=== PATIENT | male | born 1960 | race Caucasian/White ===

== ENCOUNTER 2023-08-04 09:50 | Inpatient (IN) | payer OTHER, SELFPAY ==
[2023-08-04] VITALS (44 sets, daily range): BP systolic 70–142; BP diastolic 51–84; BMI 36.6; BMI 35.9
--- NOTE | 2023-08-04 07:29 | ED.GENMED ---
History of Present Illness
General
Chief Complaint: Fainting/Passed Out
Source: patient and ambulance crew
Exam Limitations: none
Time Seen by Provider: 08/04/23 07:20
Travel History
Have you had any contact with someone who has COVID-19?: No
Do you have any symptoms of coronavirus? Fever > 100 degrees, chills, cough, shortness of breath, sore throat, loss of taste or smell, muscle aches, or headache?: No
History of Present Illness
History of Present Illness:
62-year-old male recurring episodes of near syncope over the last 4 to 5 days. Usually with standing. Also intermittent episodes of indigestion. No indigestion today. However became very lightheaded and syncopal upon standing from bed today.
Has been on progressive increased doses of Mounjaro over the last 5 weeks.
Past History
Past History
ED Past Medical History: Arrthythmia, Cancer, HTN, Hypercholesterolemia and NIDDM
Social History
Tobacco: Smoker
Personal:
Living: with family
Review of Systems
Review of Systems
All Other Systems: Not applicable
Constitutional: Denies fever
Respiratory: Reports no symptoms
Phy Exam
Physical Exam
Physical Exam:
GENERAL: Alert and oriented in no apparent distress. Hypotensive lying flat although apparently improved from prehospital.
EYE: Orbits normal.
NECK: Supple, no significant adenopathy.
ENT: Pharynx without erythema
CARDIAC: Regular rate and rhythm without any obvious murmurs.
LUNGS: Clear breath sounds,normal
ABDOMEN: Soft, without focal tenderness or distention. Elevated BMI
NEUROLOGICAL: Alert and oriented , grossly non-focal
SKIN: Warm and dry, no rash or lesion, no discoloration, skin intact.
MUSCULOSKELETAL: No edema,no deformity.Good color
PSYCH: Normal and appropriate interaction..
Course
Orders/Labs/Results
Orders:
Orders
04/07/24 Breakfast
NPO
Allow oral meds: Yes
Allow clear liquids: Sips of Clears
08/04/23 07:20
Electrocardiogram (*1) Stat
Reason for Study: Abdominal Pain
Cardiac Monitoring- Treatment ONCE
EKG- Treatment ONCE
IV Insert/Care/Rem.- Treatment PRN
0.9% Sodium Chloride 1000 ml [Nss] 1,000 ml IV BOLUS
Pulse Ox/cont/shift [RESP] Stat
Quantity: 1
08/04/23 07:23
Complete Blood Count/With Diff Urgent
Comprehensive Metabolic Panel Urgent
Lactic Acid Urgent
Lipase Urgent
Magnesium Urgent
Comment: ADD ON
Troponin I Urgent
Blood Culture Q30M
MIRNA Source: Blood/Venous
Specimen Description:
08/04/23 08:00
Blood Culture Q30M
[facility]IRNA Source: Blood/Venous
Specimen Description:
08/04/23 08:34
Piperacillin/Tazo 4.5 Gram [Zosyn] 4.5 gram in 100 ml IV NOW
CXR Port [CR Chest Portable - 1 View] Urgent
Comment:
Reason For Exam: /Shaking chills/hypotension
Reason Study Needs to be Portable: Unable to Transport
08/04/23 08:36
COVID-19 Antigen Urgent
Source: Nasal Swab
Influenza A+B Rapid Molecular Urgent
MIRNA Source: Nasal Swab
Specimen Description:
08/04/23 08:50
0.9% Sodium Chloride 1000 ml [Nss] 1,000 ml IV BOLUS
08/04/23 08:51
Pearce Placement- Treatment ONCE
Reason for insertion: I&O's Critical Care
08/04/23 09:11
Urinalysis Reflex To Culture Urgent
Date Specimen was Collected: 08/04/23
Time Specimen was Collected: 08:58
Urine Microscopic Reflex Cult Urgent
08/04/23 09:37
Admit/Transfer Patient As Directed
Co-Sign Provider:
Level of Care: Inpatient admission
Assign to:: ICU
Physician / Group: Paola
Diagnosis: Shock, PRINCESS
Reason for Hospitalization: Shock
Expected length of stay greater than two midnights?: Yes
ELOS- Estimated Length of Stay in days: 4
I certify the patient meets the requirements for IP care: Yes
08/04/23 09:38
Code Status As Directed
Resuscitation Status: Full Code
08/04/23 09:44
Add On- LAB Routine
Tests Added?: magnesium
08/04/23 10:10
B-Hydroxybutyrate Routine
08/04/23 11:03
Acetaminophen [Tylenol] 650 mg PO Q6HPRN PRN
Dextrose 50%-Water [Dextrose 50% Syringe] 12.5 grams IV [id number] PRN
Glucagon [GlucaGen] 1 mg IM PRN PRN
NORepinephrine 4 MG/250 ML [Levophed] 4 mg in 250 ml IV PER PROTOCOL
Initial dose in mcg/min, then titrate:: 2
Titrate to keep:: SBP > 90 mmHg
Titrate by mcg/min:: 1-2 mcg/min
Frequency of titrations (minutes):: 5
Maximum dose in ICU in mcg/min:: 30
Maximum dose in IMU in mcg/min:: 8
Maximum dose in IVU in mcg/min:: 4
Begin to taper infusion when:: Remained at goal for 4hrs
Taper by mcg/min:: 1-2 mcg/min
Frequency of taper (minutes) if patient maintains goal:: 30
Taper to off?: Yes
If infusion off & no longer maintaining goal:: Contact Provider
Prochlorperazine [Compazine] 10 mg IV Q6HPRN PRN
08/04/23 11:03
Correctional Sergeant Consult Routine
Consulting Provider: Dung Nolan
Was physician already notified: Yes
NEPHROLOGY CONSULT Routine
Consulting Provider: Radha Ye
Was physician already notified: Yes
Activity As Directed
Activity Level: Bedrest
Bedside Glucose Monitoring As Directed
Frequency: AC&HS
Comment: Change to q6h if pt on TPN, tube feeding or not eating
I&O [Intake/ Output] As Directed
Frequency: q12h
DX Deep Vein Thrombosis Video Routine
08/04/23 11:25
Troponin I Q6H
08/04/23 11:30
0.9% Sodium Chloride 1000 ml [Nss] 1,000 ml IV 125 mls/hr
Insulin Aspart Corrective Low [Novolog Flexpen-Low Resistance] See Protocol SC AC
Pantoprazole [Protonix IV] 40 mg IV DAILY
08/04/23 19:00
Troponin I Q6H
08/04/23 20:00
Apixaban [Eliquis] 5 mg PO BID
08/05/23 01:00
Troponin I Q6H
08/05/23 06:00
Complete Blood Count/With Diff IN AM
Comprehensive Metabolic Panel IN AM
Glycohemoglobin (HgbA1c) IN AM
Magnesium IN AM
Abnormal Lab Results
08/04/23 08/04/23
09:11
WBC 10.9 H 10^3/uL
(4.8-10.8)
MPV 10.6 H fL
(7.4-10.4)
Abs Immat Gran (auto) 0.1 H 10^3/uL
(0-0.05)
Absolute Monos (auto) 1.4 H 10^3/uL
(0.1-0.6)
Immature Gran % 0.6 H %
(0-0.5)
Monocytes % 12.8 H %
(1.7-9.3)
Sodium 124 L mmol/L
(135-145)
Chloride 70 L mmol/L
(98-107)
Carbon Dioxide 36 H mmol/L
(22-30)
BUN 148 H* mg/dl
(9-20)
Creatinine 7.0 H* mg/dL
(0.7-1.3)
Glucose 293 H mg/dl
(70-99)
Lactic Acid 3.6 H mmol/L
(0.7-2.0)
Troponin I 0.270 H* ng/ml
Urine Ketones Trace A
(Negative)
Ur Occult Blood Reflex Trace A
(Negative)
Urine Bilirubin 1+ A
(Negative)
Leukocyte Esterase Rfl Trace A
(Negative)
Urine RBC 3-6 A /HPF
(0-2)
Urine Bacteria (Reflex) Few A
(Negative)
Urine Glucose 3+ A
(Negative)
08/04/23 07:23
08/04/23 07:23
Vital Signs
Initial and Last Documented VS:
Initial Vital Signs
Temp Pulse Resp BP Pulse Ox
97.4 F 85 20 97/84 99
08/04/23 07:13 08/04/23 07:13 08/04/23 07:13 08/04/23 07:13 08/04/23 07:13
Last Documented Vital Signs
Temp Pulse Resp BP Pulse Ox
98.2 F 67 18 118/73 99
08/04/23 11:21 08/04/23 10:41 08/04/23 10:41 08/04/23 10:41 08/04/23 07:13
MDM/Problems Addressed
Differential Diagnosis Includes:
Patient with recurring episodes of hypotension mostly orthostatic in nature over the last 4 to 5 days. Also intermittent episodes of indigestion. However no indigestion today. No abdominal pain no bloody stools or tarry stools. Patient has been
on Mounjaro with increasing doses over the last 5 weeks. Large differential including dehydration secondary to poor intake, side effects of Mounjaro which can be indigestion and hypotension nausea. Cardiac. Patient does have a long QT which has
to be considered.
*Pulse Oximetry
Patient hypoxic: no
*EKG
Interpreted by ED Provider?: Yes
Interpretation: abnormal
Comparison EKG: changes noted
Heart Rate: 80
Rate: normal
Rhythm: sinus
[place]: left axis deviation
Interval: long QT
QRS Pattern: normal QRS
Ischemia: non-specific ST changes
*Critical Care Note
Total Time (30-74mins, 75-104mins- exclusive of procedures): 55
Data Reviewed
Review of Other/Old Records Reveals: Labs and Records
Update Note
Update Note:
0830.... Family updated. Patient now with shaking chills. Blood pressure remains in the 80s. Sepsis, cardiac, severe dehydration, med effect all still on the table. We will get cardiology involved. Cover with antibiotics with the shaking chills.
0836.... Called for BUN and creatinine. Instrument issues. He is currently being run.
0850... Patient in renal failure. Was on ibuprofen but this was 10 days ago for his back. None recently. Has noted dark decreased urination recently. Pearce placed per nephrology. They are good with a second liter of fluid.
0940..... Patient seen by nephrology and hospitalist.
0958... Patient's blood pressure in the 70s. Third liter of fluid ordered. Hospitalist contacted. Levophed ordered.
ED Attending Note
-
Portions of this chart may have been created with voice recognition software.� Occasional wrong word or��sound alike� substitutions may have occurred due to the inherent limitations of voice recognition software.
Discharge Plan
Departure
Patient Disposition: Admit
Date of Disposition: 08/04/23
Time of Disposition: 08:51
Presentation/result/management discussed w/ accepting MD/DO: Nephrology/cardiology
Discharge Problem:
Acute renal failure, Hyponatremia, Long QT interval, Persistent hypotension, indeterminate troponin
Interventions
Interventions:
*Risk Screen - Suicide Last Done: 08/04/23 07:13
*General Assessment Last Done: 08/04/23 07:13
*Neglect/Abuse Screening Last Done: 08/04/23 07:13
*Nursing Disposition Last Done: 08/04/23 11:20
ED- Cardiac Assessment Last Done: 08/04/23 09:10
ED- Neurological Assessment Last Done: 08/04/23 09:10
Discharge Date and Time
Discharge Date/Time: 08/04/23 11:21
[2023-08-04 07:38] LABS: % Basophils 0.4 % (0-2); % Eosinophils 0.9 % (0-6); % Immature Granulocytes 0.6 % (0-0.5); % Lymphocytes 25.4 % (20.5-51.1); % Monocytes 12.8 % (1.7-9.3); % Neutrophils 59.9 % (42.2-75.2); Absolute Eosinophils 0.1 10^3/uL (0-0.7); Absolute Immature Granulocytes 0.1 10^3/uL (0-0.05); Absolute Lymphocytes 2.8 10^3/uL (1.2-3.4); Absolute Monocytes 1.4 10^3/uL (0.1-0.6); Absolute Neutrophils 6.5 10^3/uL (1.4-6.5); Hemoglobin 17.8 g/dL (13.0-18.0); Mean Corp Hgb Conc. 35.6 g/dL (33.0-37.0); Mean Corpuscular Volume 87.1 fL (80.0-94.0); Mean Platelet Volume 10.6 fL (7.4-10.4); Nucleated Red Blood Cells % 0 % (-); Platelet Count 269 10^3/uL (130-400); Red Blood Cell Count 5.74 10^6/uL (4.70-6.10); Red Cell Dist. Width 12.3 % (11.5-14.5); White Blood Cell Count 10.9 10^3/uL (4.8-10.8)
[2023-08-04] MEDS: NSS 1000 IV ×4 (08:19→20:12)
[2023-08-04 08:20] LABS: Albumin 4.3 g/dl (3.5-5.0); Chloride 70 mmol/L (98-107); Potassium 3.7 mmol/L (3.5-5.1); Sodium 124 mmol/L (135-145); Total Bilirubin 0.9 mg/dl (0.2-1.3)
[2023-08-04 08:29] LABS: ALT (SGPT) 41 U/L (0-50); AST (SGOT) 51 U/L (17-59); Alkaline Phosphatase 46 U/L (38-126); Calcium 9.3 mg/dl (8.4-10.2); Carbon Dioxide 36 mmol/L (22-30); Glucose 293 mg/dl (70-99); Total Protein 7.2 g/dl (6.3-8.2)
[2023-08-04 08:35] LABS: Lactic Acid 3.6 mmol/L (0.7-2.0)
[2023-08-04 08:43] LABS: Blood Urea Nitrogen 148 mg/dl (9-20); eGFR 8.29
[2023-08-04] MEDS: ZOSYN 100 IV (09:08)
[2023-08-04 09:27] LABS: Urine Albumin Trace (Neg - Trace); Urine Bilirubin 1+ (Negative); Urine Character Clear (Clear); Urine Color Yellow; Urine Glucose 3+ (Negative); Urine Ketone Trace (Negative); Urine Leukocyte Trace (Negative); Urine Nitrite Negative (Negative); Urine Occult Blood Trace (Negative); Urine Urobilinogen Negative (Neg - 1+)
[2023-08-04 09:31] LABS: COVID-19 Antigen Negative (Negative)
--- NOTE | 2023-08-04 09:42 | HPS.HSE ---
Family Physician
-
Family Physician: HAN FORTUNE PA-C
Chief Complaint
-
Syncope, nausea vomiting diarrhea
History of Present Illness
62-year-old male with recurrent lightheadedness and syncope, as well as vomiting and diarrhea for the past 5 to 6 days.
Poor historian. Unable to keep any food down. Complaining of esophageal burning. Denies dysphagia.
Denies fevers or chills. Denies chest pain or shortness of breath.
Recently had the Mounjaro dose increased more than a week ago.
Medical History
Past Medical History
Past Medical History: Reports Other
Additional Past Medical History:
DM2
Essential hypertension
Hyperlipidemia
Paroxysmal atrial fibrillation
Past Surgical History: Reports None
Additional Past Surgical History:
Ablation for atrial fibrillation
Social History
Tobacco: Smoker
Alcohol: Occasional
Drug: None
Family History
Family History: Not pertinent
Allergies / Home Medications
Allergies reflects when Allergies were last updated in [facility].
Home Medications with original date entered in [facility]
Allergy/Medication List:
Allergies
Allergy/AdvReac Type Severity Reaction Status Date / Time
No Known Allergies Allergy Verified 08/04/23 07:12
Home Medications
acetaminophen 325 mg capsule (Tylenol) 650 mg PO PRN PRN pain 07/02/19
apixaban 5 mg tablet (Eliquis) 5 mg PO BID 07/02/19
ascorbic acid (vitamin C) 1,000 mg tablet (Vitamin C) 1,000 mg PO DAILY 07/02/19
atorvastatin 10 mg tablet 10 mg PO AMHS 07/02/19
docosahexaenoic acid (dha)-epa 120 mg-180 mg capsule 1 cap PO BID 07/02/19
lisinopril 20 mg tablet 20 mg PO DAILY 07/02/19
metoprolol tartrate 50 mg tablet 50 mg PO BID 07/02/19
empagliflozin 10 mg tablet (Jardiance) 10 mg PO DAILY #30 tabs 07/03/19
insulin glargine 100 unit/mL (3 mL) subcutaneous pen (Basaglar KwikPen U-100 Insulin) 18 unit (0.18 mL) SQ HS ##5 07/03/19
metformin 1,000 mg tablet 1,000 mg PO BID ##0 07/03/19
pen needle, diabetic 32 gauge x ' ##100 07/03/19
Review of Systems
-
History Source: Patient
A 12 point ROS was completed and negative except as noted: Yes
Physical Exam
Vital Signs
Vital Signs
Temp Pulse Resp BP Pulse Ox
97.4 F 85 20 97/84 99
08/04/23 07:13 08/04/23 07:13 08/04/23 07:13 08/04/23 07:13 08/04/23 07:13
Physical Exam
General: Well Developed, Well Nourished, No Apparent Distress and Comfortable
HEENT: NormoCephalic, Anicteric and Moist mucous membranes
Respiratory: Clear
Cardiac: S1/S2 and Regular Rhythm
GI: Soft, Non Tender and Non Distended
Genito-urinary: Pearce
Musculoskeletal: No Clubbing, No Cyanosis and No Edema
Skin: Warm and Dry
Neuro: Awake, Alert and Oriented
Hematologic/Lymphatic: No Lymphadenopathy
Psych: Calm
Laboratory Results
-
08/04/23 07:23
08/04/23 07:23
Laboratory Results
Lactic Acid 3.6 mmol/L (0.7-2.0) H 08/04/23 07:23
Total Bilirubin 0.9 mg/dl (0.2-1.3) 08/04/23 07:23
AST 51 U/L (17-59) 08/04/23 07:23
ALT 41 U/L (0-50) 08/04/23 07:23
Alkaline Phosphatase 46 U/L (38-126) 08/04/23 07:23
Troponin I 0.270 ng/ml H* 08/04/23 07:23
Impression/Plan
-
Hypovolemic shock -likely due to profound volume depletion, GI fluid loss, poor oral intake. Admit to ICU. Continue aggressive IV fluids. Start Levophed. Consult ammunition assembly ii laborer.
PRINCESS -suspect due to profound volume depletion. Treatment as above. Consult nephrology. Pearce catheter placed in the emergency room. Hold metformin.
Contraction metabolic alkalosis noted. Check beta hydroxybutyrate.
Lactic acidosis noted.
Syncope -likely related to shock, profound volume depletion.
Hyponatremia -hypovolemic. Corrected sodium 127.
DM2 with hyperglycemia -glucose 293 this morning. Trace ketones on urinalysis. Check beta hydroxybutyrate. May need glycemic protocol with IV insulin.
Essential hypertension -currently hypotensive due to hypovolemic shock. Hold antihypertensives.
Paroxysmal atrial fibrillation -resume Eliquis.-Prior ablation in the past.
hyperlipidemia
Obesity due to excess calories
Full code
Family updated at the bedside.
[2023-08-04 09:46] LABS: Urine Bacteria Few (Negative); Urine White Cell 0-2 /HPF (0-5)
[2023-08-04 09:59] LABS: Lipase 99 U/L (23-300)
[2023-08-04] MEDS: LEVOPHED 250 IV ×2 (10:04→18:50)
[2023-08-04 10:25] LABS: Magnesium 1.9 mg/dl (1.6-2.3)
[2023-08-04 10:47] LABS: B-Hydroxybutyrate 0.44 mmol/L (0.02-0.27)
--- NOTE | 2023-08-04 10:51 | W.CON.NEPH ---
Consultation
-
Date/Time Consultation Requested: 08/04/23909
Date/Time Consultation Performed: 08/04/23929
Requesting Provider: Tyson Padilla
Performing Provider: Radha Bahena
Reason for Consultation: PRINCESS
Medical History
-
Chief Complaint: syncope, nausea, vomiting, diarrhea
History of Present Illness:
62-year-old male with h/o HTN on ACEI, HLD on statin, P Afib on BB and ELiquis, BPH and high PSA, type 2 DM on metformin, Jardiance, insulin who reportedly started on Mounjaro 5weeks ago and dose increased progressively and last change was 1week
ago. Since 6days he started to feel dizzy, nausea, vomiting and diarrhea/. He had syncopal episodes upon standing too and symp worse today hence presented to the ER. Cr noted at7, BUN 148, bicarb 36, sodium 124, cl 70. Pt reports of decreasing UOP
for last few days. Denies fevers or chills. Denies chest pain or shortness of breath, no cough or abd pain.He found to have chills in ER and hypotensive, s/p 2lit NS bolus and abx.
Past Medical History
HTN, HLD, P Afib, ELiquis, BPH and high PSA, type 2 DM
Past Surgical History: Other (Afib ablation)
Social History
Tobacco: Smoker
Alcohol: Occasional
Drug: None
Living: With Family
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
Family History
no CKD in family
Family History: Not Pertinent
Allergies / Home Medications
Allergy/AdvReac Type Severity Reaction Status Date / Time
No Known Allergies Allergy Verified 08/04/23 07:12
�Medication �Instructions �Recorded �Confirmed �Type
acetaminophen 325 mg capsule 650 mg PO PRN PRN pain 07/02/19 08/04/23 History
(Tylenol)
apixaban 5 mg tablet (Eliquis) 5 mg PO BID 07/02/19 08/04/23 History
ascorbic acid (vitamin C) 1,000 mg 1,000 mg PO DAILY 07/02/19 08/04/23 History
tablet (Vitamin C)
atorvastatin 10 mg tablet 10 mg PO AMHS 07/02/19 08/04/23 History
docosahexaenoic acid (dha)-epa 120 1 cap PO BID 07/02/19 08/04/23 History
mg-180 mg capsule
lisinopril 20 mg tablet 20 mg PO DAILY 07/02/19 08/04/23 History
metoprolol tartrate 50 mg tablet 150 mg PO DAILY 07/02/19 08/04/23 History
empagliflozin 10 mg tablet 10 mg PO DAILY #30 tabs 07/03/19 08/04/23 Rx
(Jardiance)
insulin glargine 100 unit/mL (3 18 unit (0.18 mL) SQ HS ##5 07/03/19 08/04/23 Rx
mL) subcutaneous pen (Basaglar
KwikPen U-100 Insulin)
metformin 1,000 mg tablet 1,000 mg PO BID ##0 07/03/19 08/04/23 Rx
pen needle, diabetic 32 gauge x ##100 07/03/19 08/04/23 Rx
532'
Review of Systems
-
All complete 12 point ROS have been inquired and found negative other than stated in HPI
Physical Exam
Vital Signs
Vital Signs
Temp Pulse Resp BP Pulse Ox
97.4 F 67 18 118/73 99
08/04/23 07:13 08/04/23 10:41 08/04/23 10:41 08/04/23 10:41 08/04/23 07:13
Lab Results
WBC 10.9 10^3/uL (4.8-10.8) H 08/04/23 07:23
RBC 5.74 10^6/uL (4.70-6.10) 08/04/23 07:23
Hgb 17.8 g/dL (13.0-18.0) 08/04/23 07:23
Hct 50.0 % (39.0-52.0) 08/04/23 07:23
Plt Count 269 10^3/uL (130-400) 08/04/23 07:23
Sodium 124 mmol/L (135-145) L 08/04/23 07:23
Potassium 3.7 mmol/L (3.5-5.1) 08/04/23 07:23
Chloride 70 mmol/L (98-107) L 08/04/23 07:23
Carbon Dioxide 36 mmol/L (22-30) H 08/04/23 07:23
BUN 148 mg/dl (9-20) H* 08/04/23 07:23
Creatinine 7.0 mg/dL (0.7-1.3) H* 08/04/23 07:23
eGFR 8.29 08/04/23 07:23
Glucose 293 mg/dl (70-99) H 08/04/23 07:23
Calcium 9.3 mg/dl (8.4-10.2) 08/04/23 07:23
Albumin 4.3 g/dl (3.5-5.0) 08/04/23 07:23
CXR unremarkable
Physical Exam
General: Awake, Alert, Oriented, AOx3 and No Distress
HEENT: EOMI, Anicteric and No JVD
Respiratory: Clear
Cardiac: S1/S2 and Regular Rate/Rhythm
Abdomen: Soft, Nontender and Nondistended
Musculoskeletal: No Cyanosis and No Edema
Skin: No Rash
Neuro: Nonfocal/Grossly Intact
Psych: Mood/afflect pleasant and Appropriate
Assessment/Plan
-
IMP:
Hypovolemic shock
PRINCESS
Syncope
Hyponatremia -hypovolemic
DM2 with hyperglycemia
Trop elevation -likely non MS
Essential hypertension
Paroxysmal atrial fibrillation
hyperlipidemia
Obesity
Plan:
A/w n/v/d and syncope
severe PRINCESS likely prerenal progressed to ischemic ATN
UA with microhematuria(h/o neg cystoscopy), place bill
check renal US when can and monitor UOP
met alkalosis, hypochloremia likely from vomiting
hyponatremia(corrected 127) mostly hypovolemic , cont isotonic IVF and repeat labs later today
no emergent indication of HD , may need it if cont ot have worsening renal function
pressors to keep MAP>65
mild a gap noted, B hydroxy butyrate+ve, insulin per primary, holding Jardiance and Mounjaro
avoid nephrotoxins and AECI, metformin
L acid is improving
CC time spent 40min, d/w ER, primary team
d/w pt and family
Data Reviewed
-
Radiology: Report Reviewed by me
Labs: Labs Reviewed by me, Discussed with Physician, Discussed with Patient and Discussed with Family
[2023-08-04] MEDS: NSS (PRESERVATIVE FREE) 10 ML IV (11:31)
[2023-08-04] MEDS: PROTONIX IV 40 MG IV (11:31)
[2023-08-04 11:32] LABS: Glucose - Point of Care 229 mg/dl (70-99)
[2023-08-04] MEDS: NOVOLOG FLEXPEN-LOW RESISTANCE 2 UNITS SC (11:38)
[2023-08-04 11:43] LABS: INR 1.09; PT 13.9 Sec (11.4-14.6)
[2023-08-04 11:44] LABS: APTT 29.7 Sec (23.4-35.0); Lactic Acid 1.8 mmol/L (0.7-2.0)
[2023-08-04 11:58] LABS: Troponin I 0.258 ng/ml
--- NOTE | 2023-08-04 12:10 | PTCARENOTE ---
pt received from er via stretcher- aox4, sinus on monitor, 8mcg of levo infusing for systolic goal>90. on room air. ivf infusing as ordered. pt educated on npo status and orientation to room- verbalized understanding. updated at bedside. all
safety precautions in place, call morelos within reach.
--- NOTE | 2023-08-04 13:06 | CON.INTV ---
Consultation
Consultation Request
Date/Time Consultation Requested: 08/04/2023
Date/Time Consultation Performed: 08/04/2023
Requesting Provider: Dr. Guevara
Performing Provider: Dr. Dung Sy
Reason for Consultation: Hypovolemic shock
Medical History
-
History of Present Illness:
62-year-old male with past medical history significant for type 2 diabetes, hypertension, hyperlipidemia, atrial fibrillation who came in complaining of lightheadedness and syncope. For the last 5 to 6 days he has been having diarrhea nausea and
vomiting. He was not able to take his medications or keep any food or liquid down. Reports some heartburn. Denies any fevers or chills. Denies bloody bowel movement.
Patient takes Mounjaro and the dose was increased few weeks ago.
Past Medical History
Past Medical History: Other (See assessment and plan section)
Social History
Tobacco: Smoker
Alcohol: Occasional
Drug: None
Family History
Family History: Reviewed & Not Pertinent
Allergies / Home Medications
Allergies
Allergy/AdvReac Type Severity Reaction Status Date / Time
No Known Allergies Allergy Verified 08/04/23 07:12
Home Medications
�Medication �Instructions �Recorded �Confirmed �Last Taken �Type
acetaminophen 325 mg capsule 650 mg PO PRN PRN pain 07/02/19 08/04/23 07/01/19 21:00 History
(Tylenol)
apixaban 5 mg tablet (Eliquis) 5 mg PO BID 07/02/19 08/04/23 08/03/23 History
ascorbic acid (vitamin C) 1,000 mg 1,000 mg PO DAILY 07/02/19 08/04/23 08/03/23 History
tablet (Vitamin C)
atorvastatin 10 mg tablet 10 mg PO AMHS 07/02/19 08/04/23 07/01/19 04:00 History
docosahexaenoic acid (dha)-epa 120 1 cap PO BID 07/02/19 08/04/23 08/03/23 History
mg-180 mg capsule
lisinopril 20 mg tablet 20 mg PO DAILY 07/02/19 08/04/23 08/03/23 History
metoprolol tartrate 50 mg tablet 150 mg PO DAILY 07/02/19 08/04/23 08/03/23 History
empagliflozin 10 mg tablet 10 mg PO DAILY #30 tabs 07/03/19 08/04/23 08/03/23 Rx
(Jardiance)
insulin glargine 100 unit/mL (3 18 unit (0.18 mL) SQ HS ##5 07/03/19 08/04/23 08/03/23 Rx
mL) subcutaneous pen (Basaglar
KwikPen U-100 Insulin)
metformin 1,000 mg tablet 1,000 mg PO BID ##0 07/03/19 08/04/23 08/03/23 Rx
pen needle, diabetic 32 gauge x ##100 07/03/19 08/04/23 Unknown Rx
'
Review of Systems
-
History Source: Patient
All other systems: Negative unless noted
Vitals / Labs / Diagnostic Testing
Vital Signs
Temp Pulse Resp BP Pulse Ox
98.2 F 67 18 118/73 97
08/04/23 11:21 08/04/23 10:41 08/04/23 10:41 08/04/23 10:41 08/04/23 12:02
Lab Data
08/04/23 07:23
08/04/23 07:23
Laboratory Results
08/04/23
11:25
PT 13.9
INR 1.09
APTT 29.7
Microbiology
08/04/23 08:36 Nasal Swab Influenza Types A & B ([facility]) - Final
Negative for Influenza A & B, NAAT
Negative results must be combined with clinical observations
and patient history.
Nucleic Acid Amplification test (NAAT)performed on the
[employer] NOW platform.
Diagnostic Testing:
Physical Exam
-
HEENT: Normocephalic
Cardiovascular: S1/S2 and Regular Rhythm
Respiratory: Clear and Non-Labored Respirations
GI: Soft and Non Distended
Neurology: Awake, Alert and No Motor Deficits
Skin: Warm
General: Respiratory Distress (n)
Assessment
-
62-year-old man with history of diabetes, atrial fibrillation, hyperlipidemia, hypertension who is a smoker comes to the hospital complaining of vomiting for the last several days. Mild diarrhea. Recently his Mounjaro has been increased. He
states that whenever he is Mounjaro was given he did not feel well.
Hypovolemic shock: Likely due to nausea and vomiting/GI losses
Contraction alkalosis
Acute kidney injury with BUN greater than 100
Initial lactic acid elevated now has cleared
Mild troponin increase likely type II
Hyperglycemia
Trace ketones in urine
Slightly elevated beta hydroxybutyrate
Conditions present prior admission:
Type 2 diabetes
Atrial fibrillation on anticoagulation
Hyperlipidemia
Hypertension
Smoker
Assessment and plan:
Critically ill, with acute kidney injury, syncopal episode due to hypovolemic shock
Clinically feels better
Alert and cooperative
No further nausea vomiting
-
Aggressive normal saline resuscitation patient has hypochloremic metabolic alkalosis.
Will give additional bolus of 500 mL
Increase normal saline to 150 mL an hour
Hopefully can wean off vasopressors as able. Currently at 8 mics per minute.
Will give additional bolus of fluid as needed
Hold antihypertensives
Pearce urinary output
Follow renal function
Pearce in place
Repeat labs later
-
Continue hemodynamic monitoring
EKG with normal sinus rhythm. Left axis deviation. Prolonged QT.
Correct electrolytes
-
Hyperglycemia, trace ketones in urine.
Agree with obtaining hydroxybutyrate
Hold Mounjaro and metformin
Insulin sliding scale
There is incidence of euglycemic DKA, currently mostly alkalosis.
Blood glucose over 200. He usually takes nocturnal long-acting insulin.
Start insulin drip.
Eventual diabetes nurse practitioner evaluation
-
Hyponatremia, hypovolemic. IV fluids as above.
-
N.p.o. for now
Head of the bed elevation
-
Mild increased troponins-likely non-TX.
EKG nonischemic
No chest pain
Trend-repeat is pending
May need echocardiogram
-
Patient states that he was evaluated for sleep apnea and it was negative.
-
DVT prophylaxis on anticoagulation for atrial fibrillation
-
Dr. Sy updated family at the bedside.
-
Critical care statement: A total of 38 minutes of critical care time was provided for this patient today. This includes management of unstable vital signs, evaluation of the patient at bedside, reviewing the patient's pertinent medical records
including ventilator settings, arterial blood gases, radiographs, microbiology, laboratory evaluations and discussion with primary team, critical care nursing, and respiratory therapy.
[2023-08-04 13:41] LABS: Glucose - Point of Care 254 mg/dl (70-99)
[2023-08-04] MEDS: NSS 500 IV (14:13)
[2023-08-04] MEDS: NOVOLIN R 4 UNITS IV (14:18)
[2023-08-04] MEDS: NOVOLIN R INSULIN INFUSION 100 IV (14:19)
[2023-08-04 14:27] LABS: Glucose - Point of Care 245 mg/dl (70-99)
--- NOTE | 2023-08-04 14:35 | PTCARENOTE ---
pt started on insulin gtt per order for glycemic protocol. ivf bolus given. remains on 8mcg of levo. assessment unchanged.
[2023-08-04 15:39] LABS: Glucose - Point of Care 204 mg/dl (70-99)
[2023-08-04 15:51] LABS: Calcium 8.1 mg/dl (8.4-10.2); Carbon Dioxide 30 mmol/L (22-30); Chloride 86 mmol/L (98-107); Glucose 215 mg/dl (70-99); Magnesium 1.8 mg/dl (1.6-2.3); Potassium 2.7 mmol/L (3.5-5.1); Sodium 127 mmol/L (135-145)
[2023-08-04 15:55] LABS: Estimated Creatinine Clearance 16 ml/min; eGFR 9.78
[2023-08-04 15:57] LABS: Blood Urea Nitrogen 145 mg/dl (9-20)
[2023-08-04] MEDS: KCL 270 MEQ IV (16:30)
[2023-08-04] MEDS: KCL 40 MEQ PO (16:30)
[2023-08-04 16:40] LABS: Glucose - Point of Care 158 mg/dl (70-99)
[2023-08-04 17:34] LABS: Glucose - Point of Care 130 mg/dl (70-99)
[2023-08-04 18:33] LABS: Glucose - Point of Care 111 mg/dl (70-99)
[2023-08-04 19:45] LABS: Glucose - Point of Care 99 mg/dl (70-99)
--- NOTE | 2023-08-04 20:00 | PTCARENOTE ---
Rec'd pt resting in bed, has pain sacral area from falling, requests no pain med at this time, cooperative, oriented, SR, to keep sbp > 90, levophed at 3 melo- see flow sheet for titrations, + pulses, no edema, skin warm/dry, RA, lungs decr in bases,
sat 92, no sob, + bowel sounds, no bm, abd obese, soft, no n/v, don sips of h20, bill draining yellow urine
[2023-08-04] MEDS: ELIQUIS 5 MG PO (20:05)
--- NOTE | 2023-08-04 21:30 | PTCARENOTE ---
tylenol 650mg po given for sacral pain from fall
[2023-08-04] MEDS: TYLENOL 650 MG PO (21:38)
[2023-08-04 21:41] LABS: Glucose - Point of Care 103 mg/dl (70-99)
[2023-08-04 21:58] LABS: Carbon Dioxide 30 mmol/L (22-30); Chloride 91 mmol/L (98-107); Glucose 114 mg/dl (70-99); Magnesium 1.8 mg/dl (1.6-2.3); Phosphorus 5.1 mg/dl (2.5-4.5); Potassium 3.6 mmol/L (3.5-5.1); Sodium 129 mmol/L (135-145)
[2023-08-04 22:04] LABS: Blood Urea Nitrogen 138 mg/dl (9-20); Estimated Creatinine Clearance 19 ml/min; eGFR 12.12
--- NOTE | 2023-08-04 22:30 | PTCARENOTE ---
Fredis Ramos np aware of lab results
[2023-08-04] MEDS: MAGNESIUM SULFATE 102 GRAMS IV (23:25)
--- NOTE | 2023-08-04 23:30 | PTCARENOTE ---
1 gm mag sulfate over 1 hr hung per order; sys reviewed, pt w/ severe sacral/cocyx pain, B Rachel, NURSE MIDWIFE aware, dilaudid 0.5 mg iv given as ordered, levophed off
--- NOTE | 2023-08-04 23:30 | PTCARENOTE ---
1 gm mag sulfate over 1 hr hung per order; sys reviewed, pt w/ severe sacral/cocyx pain, B Rachel, APARTMENT MAINTENANCE TECHNICIAN aware, dilaudid 0.25 mg iv given as ordered, levophed off
[2023-08-04] MEDS: DILAUDID 0.25 MG IV (23:31)
[2023-08-04 23:38] LABS: Glucose - Point of Care 103 mg/dl (70-99)
[2023-08-05] VITALS (29 sets, daily range): BP systolic 92–159; BP diastolic 57–110; BMI 36.2
[2023-08-05] MEDS: DILAUDID 0.25 MG IV (00:34)
--- NOTE | 2023-08-05 00:38 | PTCARENOTE ---
pt w/ severe sacral/coccyx pain, B Ramos, RELEASE COORDINATOR in to assess, no evidence of bruising noted on sacraum, site soft, dilaudid 0.25mg iv given as ordered
--- NOTE | 2023-08-05 00:48 | W.PN.UPDATE ---
Update Note
Progress Note Update
The patient has been complaining of lower back pain overnight. According to the patient his said he fell twice on his backside; during his syncope event. Overnight we are unable to Xray because it needs to be a 2 view which cannot be done at
bedside. Plan: to continue to monitor for any bleeding and give pain meds. �
--- NOTE | 2023-08-05 00:56 | PTCARENOTE ---
sat 88, 2 liters nc applied
[2023-08-05] MEDS: TYLENOL 650 MG PO ×2 (01:34→10:02)
--- NOTE | 2023-08-05 01:35 | PTCARENOTE ---
2 tabs tylenol po given for mild sacral/coccyx pain
[2023-08-05 01:44] LABS: Glucose - Point of Care 100 mg/dl (70-99)
[2023-08-05] MEDS: NSS 1000 IV ×2 (03:22→10:02)
[2023-08-05 03:40] LABS: Glucose - Point of Care 85 mg/dl (70-99)
--- NOTE | 2023-08-05 03:53 | PTCARENOTE ---
sys reviewed, low back pain improved
[2023-08-05 04:00] LABS: % Basophils 0.5 % (0-2); % Eosinophils 3.2 % (0-6); % Immature Granulocytes 0.5 % (0-0.5); % Lymphocytes 32.8 % (20.5-51.1); % Monocytes 10.1 % (1.7-9.3); % Neutrophils 52.9 % (42.2-75.2); Absolute Eosinophils 0.3 10^3/uL (0-0.7); Absolute Lymphocytes 2.9 10^3/uL (1.2-3.4); Absolute Monocytes 0.9 10^3/uL (0.1-0.6); Absolute Neutrophils 4.7 10^3/uL (1.4-6.5); Hematocrit 45.1 % (39.0-52.0); Hemoglobin 15.4 g/dL (13.0-18.0); Mean Corp Hgb Conc. 34.1 g/dL (33.0-37.0); Mean Corpuscular Hgb 30.6 pg (27.0-31.0); Mean Corpuscular Volume 89.7 fL (80.0-94.0); Mean Platelet Volume 11.2 fL (7.4-10.4); Nucleated Red Blood Cells % 0 % (-); Platelet Count 236 10^3/uL (130-400); Red Blood Cell Count 5.03 10^6/uL (4.70-6.10); Red Cell Dist. Width 12.4 % (11.5-14.5); White Blood Cell Count 8.8 10^3/uL (4.8-10.8)
[2023-08-05 04:09] LABS: ALT (SGPT) 26 U/L (0-50); AST (SGOT) 32 U/L (17-59); Albumin 3.1 g/dl (3.5-5.0); Alkaline Phosphatase 30 U/L (38-126); Calcium 7.8 mg/dl (8.4-10.2); Carbon Dioxide 31 mmol/L (22-30); Chloride 94 mmol/L (98-107); Estimated Creatinine Clearance 24 ml/min; Glucose 93 mg/dl (70-99); Magnesium 2.1 mg/dl (1.6-2.3); Potassium 3.5 mmol/L (3.5-5.1); Sodium 134 mmol/L (135-145); Total Bilirubin 0.6 mg/dl (0.2-1.3); Total Protein 5.7 g/dl (6.3-8.2); eGFR 15.75
[2023-08-05 04:22] LABS: Blood Urea Nitrogen 125 mg/dl (9-20)
[2023-08-05 04:40] LABS: Glucose - Point of Care 94 mg/dl (70-99)
[2023-08-05] MEDS: KCL 260 MEQ IV (05:22)
--- NOTE | 2023-08-05 05:25 | PTCARENOTE ---
20 kcl/ 250 hung over 2 hr for K-3.5 per order
[2023-08-05 05:38] LABS: Glucose - Point of Care 108 mg/dl (70-99)
[2023-08-05 06:34] LABS: Glucose - Point of Care 114 mg/dl (70-99)
--- NOTE | 2023-08-05 07:21 | W.PN.INTV ---
Today's Communication / Plan
Recommendations
Transition to D5 normal saline
Discontinue IV insulin
Will give regular insulin 4 units x 1. Will consider 8 to 10 units tonight depending on how patient does
continue low-dose sliding scale
Advance diet as able
Continue every 2 hours blood sugars
Repeat blood work
Follow urine output
Assessment
-
62-year-old man with history of diabetes, atrial fibrillation, hyperlipidemia, hypertension who is a smoker comes to the hospital complaining of vomiting for the last several days. Mild diarrhea. Recently his Mounjaro has been increased. He
states that whenever he is Mounjaro was given he did not feel well.
Hypovolemic shock: Likely due to nausea and vomiting/GI losses
Contraction alkalosis
Acute kidney injury with BUN greater than 100
Initial lactic acid elevated now has cleared
Mild troponin increase likely type II
Hyperglycemia
Trace ketones in urine
Slightly elevated beta hydroxybutyrate
Conditions present prior admission:
Type 2 diabetes
Atrial fibrillation on anticoagulation
Hyperlipidemia
Hypertension
Smoker
Assessment and plan:
At this time, patient remains a critically ill, acute renal injury, azotemia
Number slowly trending towards improvement.
Urine output 2600, +1.3 L
92% at night on room air
Blood sugars in the 100s, remains on insulin drip
Received potassium this morning, currently normal saline at 150 an hour
Primary complaint is lower back coccyx pain
Moving forward
Diabetic STRIP MILL OPERATOR was consulted earlier this morning, await input
Both myself and ICU nursing have reached out
If unable to get recommendations, will transition to D5NS, start p.o. and cover with standing insulin
Patient on Jardiance, insulin 18 units at night, metformin, Mounjaro weekly
Continue to hold Mounjaro and metformin
Repeat BMP, follow electrolytes, potassium
Nausea/emesis have since resolved
Hemodynamically stable, norepinephrine has been weaned off
Hold antihypertensives, hold nephrotoxic drugs
Pearce urinary output
Follow renal function
Pearce in place
Repeat labs later
EKG with normal sinus rhythm. Left axis deviation. Prolonged QT.
Patient is without chest pain
Mild increased troponins-likely non-AL.
Trend-repeat is pending
May need echocardiogram
Patient states that he was evaluated for sleep apnea and it was negative.
DVT prophylaxis on anticoagulation for atrial fibrillation
Reviewed with at bedside
Critical care statement: A total of 38 minutes of critical care time was provided for this patient today. This includes management of unstable vital signs, evaluation of the patient at bedside, reviewing the patient's pertinent medical records
including ventilator settings, arterial blood gases, radiographs, microbiology, laboratory evaluations and discussion with primary team, critical care nursing, and respiratory therapy.
Subjective Dataa
Subjective Data
Date of Service:
Date of Service: August 05, 2023
Subjective:
Patient is without complaints. Denies shortness of breath, chest pain, nausea, abdominal pain. Patient anxious to eat. Received potassium this morning. . Primary complaint is lower back pain
Objective Data
Data Reviewed
Vital Signs / I&O / Oxygen:
Vital Signs
Temp Pulse Resp BP Pulse Ox
98.0 F 68 12 118/70 92
08/05/23 03:48 08/05/23 06:15 08/05/23 06:15 08/05/23 06:00 08/05/23 06:15
Intake and Output
08/04/23 08/05/23 08/06/23
06:59 06:59 06:59
Intake Total 3935.4 / 3935.4
Output Total 2600 / 2600
Balance 1335.4 / 1335.4
SaO2 92
Nasal Cannula flow liters per 2
minute
Physical Exam
General: Comfortable
HEENT: Normocephalic and Anicteric
Cardiovascular: S1-S2, Regular Rhythm, Murmur (n) and Rub (n)
Respiratory: Wheeze (n), Crackles (n), Rhonchi (n) and Non-Labored Respirations
GI: Soft, Non Distended and Non Tender
Neurology: Awake, Alert and No Motor Deficits
Skin: Good Color, Cyanosis (n), Jaundice (n) and Rash (n)
Labs/Micro/Reports
Lab Data
08/05/23 03:29
08/05/23 03:29
Laboratory Results
08/04/23 08/04/23 08/04/23
11:25 11:25 11:25
PT Cancelled 13.9
INR Cancelled 1.09
APTT Cancelled
08/04/23
11:25
PT
INR
APTT 29.7
Microbiology
08/04/23 08:36 Nasal Swab Influenza Types A & B (TROY) - Final
Negative for Influenza A & B, NAAT
Negative results must be combined with clinical observations
and patient history.
Nucleic Acid Amplification test (NAAT)performed on the
[employer] platform.
[2023-08-05 07:40] LABS: Glucose - Point of Care 104 mg/dl (70-99)
[2023-08-05] MEDS: NSS (PRESERVATIVE FREE) 10 ML IV ×2 (07:58→19:48)
[2023-08-05] MEDS: ELIQUIS 5 MG PO ×2 (07:58→19:47)
[2023-08-05] MEDS: PROTONIX IV 40 MG IV ×2 (07:59→19:48)
--- NOTE | 2023-08-05 08:00 | PTCARENOTE ---
recd 0715 insulin as noted, notes coccyx pain continues but better, rest of assessment as noted. fluids infusing. Lee petit completed. took am meds. verbalizing about eliquis and encouraged to follow up with re: continuing to take it. Remains
NSR. Presently on room air. Ramses levined.
--- NOTE | 2023-08-05 08:33 | PN.DE.MGMTRT ---
Insulin Management
- -
08/05/2023: Diabetes Management Consult
62 year old male admitted with lightheadedness, Syncope, nausea vomiting and diarrhea, found to be in DKA and started on DKA protocol.
PMH includes: HTN, HLD, A-Fib and T2DM. A1C 7.9%, Cr 6.1-->4.1 today, eGFR15.75, was taking Metformin 1000 mg BID, Jardiance 10mg daily and Basaglar 18 units @ HS.
Pt is currently in the ICU, at bedside. Pt awake, A/Ox3, resting in bed, comfortably, offers no complaints.
Glucose is stable, 85 to 114, requiring 0.3 to 1.2 units of insulin/hr.
Will consider transitioning off insulin infusion to SQ insulin, preferably @ HS.
Diabetes History
- -
Type of Diabetes: 2 requiring insulin
Pre-Admission Diabetes Regimen
08/04/23 08/04/23 08/04/23
07:23 15:27 21:31
Creatinine 7.0 H* 6.1 H* 5.1 H*
08/05/23
03:29
Creatinine 4.1 H*
Insulin Pump Settings
IP Diabetes Regimen
08/04/23 08/04/23 08/04/23
11:22 13:30 14:15
Glucose
POC Glucose 229 H 254 H 245 H
08/04/23 08/04/23 08/04/23
15:27 16:29 17:23
Glucose 215 H
POC Glucose 204 H 158 H 130 H
08/04/23 08/04/23 08/04/23
18:22 19:34 21:30
Glucose
POC Glucose 111 H 99 103 H
08/04/23 08/04/23 08/05/23
21:31 23:27 01:33
Glucose 114 H
POC Glucose 103 H 100 H
08/05/23 08/05/23 08/05/23
03:29 04:28 05:27
Glucose 93
POC Glucose 85 94 108 H
08/05/23 08/05/23
06:23 07:28
Glucose
POC Glucose 114 H 104 H
Patient Education
[2023-08-05 09:01] LABS: Glycohemoglobin (HgbA1c) 7.9 % (4.0-5.6)
--- NOTE | 2023-08-05 09:26 | PTCARENOTE ---
OOB to reclined approx 1 hour, chair cushion placed. Back to bed. Some bleeding from urinary meatus.
[2023-08-05 09:42] LABS: Glucose - Point of Care 114 mg/dl (70-99)
--- NOTE | 2023-08-05 11:26 | CM ---
CM following re: discharge planning.
Discussed in Rounds, reviewed pt's chart, met with pt. Pt's spouse and pt's father at bedside.
Pt is a 62 year old male admitted with primary dx of Hypovolemic shock, PRINCESS. Nephrology following. Per nephrology no urgent HD treatment is needed at this time.
Pt reports he lives with spouse in a 2SH, 2 steps to enter, has 3 supportive children. 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 No DME, VN or SNF history.
PCP: Jonathan Blanco
Pharmacy: [facility]
D/C plan: home with anticipated no needs. Spouse to transport at discharge.
CM will follow with discharge plan updates as hospitalization progresses
[2023-08-05 11:39] LABS: Glucose - Point of Care 112 mg/dl (70-99)
[2023-08-05] MEDS: NICODERM TRANSDERMAL 14 MG TRANSDERM (13:07)
--- NOTE | 2023-08-05 13:47 | W.PN.HOSP.TC ---
Today's Communication/Plan
-
Monitor vital signs see plan
Diabetes STAR ROUTE MAIL DRIVER to see today, likely can be transitioned to subcu insulin and p.o. diet
Monitor renal function
Continue with fluids
Monitor blood pressure closely
Monitor urine output
Discussed with family at bedside
Assessment / Plan
Assessment / Plan
General: Well Developed, Well Nourished, No Apparent Distress and Comfortable
HEENT: NormoCephalic, Anicteric and Moist mucous membranes
Respiratory: Clear
Cardiac: S1/S2 and Regular Rhythm
GI: Soft, Non Tender and Non Distended
Genito-urinary: Pearce
Musculoskeletal: No Clubbing, No Cyanosis and No Edema
Skin: Warm and Dry
Neuro: Awake, Alert and Oriented
Psych: Calm
Syncope likely 2/2 Hypovolemic shock likley 2/2 hypovolemia due to intractable nausea vomiting secondary to Mounjaro-likely due to profound volume depletion, GI fluid loss, poor oral intake. Continue aggressive IV fluids. Levophed as tolerated.
Plastic Cnc Machine Operator following
PRINCESS -suspect due to profound volume depletion. Treatment as above. Consult nephrology following. landy levine'ed; voiding trial. monitor urine output. Hold metformin.
Contraction metabolic alkalosis noted. Check beta hydroxybutyrate mildly high
Lactic acidosis noted. Resolved
Syncope -likely related to shock, profound volume depletion.
Elevated troponin likely nonischemic myocardial injury
Hyponatremia -resolved
DM2 with hyperglycemia -A1c 7.9. Currently on IV insulin. Diabetes nurse practitioner consulted. transition to sub q insulin per diabetes STAR ROUTE MAIL DRIVER. from PO standpoint i feel patient is better and can tolerate PO intake
Essential hypertension -currently hypotensive at times so hold antihypertensive
Paroxysmal atrial fibrillation -resume Eliquis.-Prior ablation in the past.
hyperlipidemia
Obesity due to excess calories
Full code
I spent a total of 52 minutes with the patient or on the floor. More than 50% of this time involved counseling and coordination of care.
Anticipated Discharge: > 48 hours
Subjective/Interval History
-
Date of Service: August 05, 2023
denies pain
Objective Data
-
Labs:
Laboratory Results
08/05/23
03:29
WBC 8.8
Hgb 15.4
Hct 45.1
Plt Count 236
Sodium 134 L
Potassium 3.5
Chloride 94 L
Carbon Dioxide 31 H
BUN 125 H*
Creatinine 4.1 H*
Glucose 93
Calcium 7.8 L
Total Bilirubin 0.6
AST 32
ALT 26
Alkaline Phosphatase 30 L
Vital Signs:
Vital Signs
Temp Pulse Resp BP Pulse Ox
97.9 F 70 19 111/67 95
08/05/23 11:02 08/05/23 11:45 08/05/23 11:45 08/05/23 11:00 08/05/23 11:45
I&O
08/04/23 08/05/23 08/06/23
06:59 06:59 06:59
Intake Total 3935.4 / 4216.6 1245.0 / 1245.0
Output Total 2600 / 2600 1150 / 1150
Balance 1335.4 / 1616.6 95.0 / 95.0
[2023-08-05 13:49] LABS: Glucose - Point of Care 104 mg/dl (70-99)
[2023-08-05] MEDS: COMPAZINE 10 MG IV (14:22)
[2023-08-05 14:24] LABS: Blood Urea Nitrogen 100 mg/dl (9-20); Calcium 8.1 mg/dl (8.4-10.2); Carbon Dioxide 27 mmol/L (22-30); Chloride 99 mmol/L (98-107); Estimated Creatinine Clearance 31 ml/min; Glucose 103 mg/dl (70-99); Sodium 136 mmol/L (135-145); eGFR 21.21
[2023-08-05] MEDS: D5/0.9% SODIUM CHLORIDE 1000 IV ×2 (14:25→22:34)
[2023-08-05 14:31] LABS: Potassium 3.3 mmol/L (3.5-5.1)
[2023-08-05] MEDS: LANTUS 0.0400000000000000008 UNITS SC (14:32)
--- NOTE | 2023-08-05 14:39 | PTCARENOTE ---
pt with anxious distress, midst CP rates 7/10 radiating to jaw, skin flushed, 12 lead obtained, troponin sent, oxygen added for comfort. med with compazine for nausea with some relief, Dr. Dominguez updated throughout and in to see pt. fluids
changed, new bag hung, lantus given, insulin stopped. presently doesn't want anything to eat or drink, apple juice bedside. CP resolving.
[2023-08-05 14:46] LABS: Glucose - Point of Care 93 mg/dl (70-99)
[2023-08-05 14:54] LABS: Troponin I 0.054 ng/ml
[2023-08-05] MEDS: KCL 270 MEQ IV (15:49)
[2023-08-05] MEDS: NOVOLOG FLEXPEN-LOW RESISTANCE SC (16:13)
[2023-08-05] MEDS: NOVOLOG FLEXPEN 4 UNITS SC (16:14)
[2023-08-05 16:21] LABS: Glucose - Point of Care 138 mg/dl (70-99)
--- NOTE | 2023-08-05 16:22 | W.PN.NEPH.PH ---
Today's Communication / Plan
-
- Cr improving
- okay to continue fluids for now
Assessment/Plan
-
IMP:
Hypovolemic shock
PRINCESS
Syncope
Hyponatremia -hypovolemic
DM2 with hyperglycemia
Trop elevation -likely non [place]
Essential hypertension
Paroxysmal atrial fibrillation
hyperlipidemia
Obesity
Plan:
A/w n/v/d and syncope
severe PRINCESS likely prerenal progressed to ischemic ATN
UA with microhematuria(h/o neg cystoscopy), place bill
renal ultrasound when able
met alkalosis, hypochloremia likely from vomiting
Na improved to 136 and Cr down to 3.2
replete K PRN
pressors to keep MAP>65
mild a gap noted, B hydroxy butyrate+ve, insulin per primary, holding Jardiance and Mounjaro
avoid nephrotoxins and AECI, metformin
L acid is improving
d/w patient and family
-
-
Date of Service: August 05, 2023
CC / HPI / ROS
-
Chief Complaint:
PRINCESS
History of Present Illness:
Cr peak at7, down to 3.2 now
hypokalemia
hyponatremia resolved
Review of Systems:
feeling much improved today
Labs
-
Labs:
WBC 8.8 10^3/uL (4.8-10.8) 08/05/23 03:29
RBC 5.03 10^6/uL (4.70-6.10) 08/05/23 03:29
Hgb 15.4 g/dL (13.0-18.0) 08/05/23 03:29
Hct 45.1 % (39.0-52.0) 08/05/23 03:29
Plt Count 236 10^3/uL (130-400) 08/05/23 03:29
Sodium 136 mmol/L (135-145) 08/05/23 13:59
Potassium 3.3 mmol/L (3.5-5.1) L 08/05/23 13:59
Chloride 99 mmol/L (98-107) 08/05/23 13:59
Carbon Dioxide 27 mmol/L (22-30) 08/05/23 13:59
BUN 100 mg/dl (9-20) H 08/05/23 13:59
Creatinine 3.2 mg/dL (0.7-1.3) H 08/05/23 13:59
eGFR 21.21 08/05/23 13:59
Glucose 103 mg/dl (70-99) H 08/05/23 13:59
Calcium 8.1 mg/dl (8.4-10.2) L 08/05/23 13:59
Phosphorus 5.1 mg/dl (2.5-4.5) H 08/04/23 21:31
Albumin 3.1 g/dl (3.5-5.0) L 08/05/23 03:29
Physical Exam
-
Vital Signs:
Vital Signs
Temp Pulse Resp BP Pulse Ox
98 F 75 19 114/75 95
08/05/23 15:01 08/05/23 15:30 08/05/23 15:30 08/05/23 15:00 08/05/23 15:30
Cardiovascular:: Regular rate and rhythm
Respiratory:: Bilateral: CTA
Lung Excursion:: Normal
Abdomen:: Nontender and Soft
Bowel Sounds:: Normal
Extremity Edema:: None: Bilateral:
Bill Catheter: No
[2023-08-05 18:31] LABS: Glucose - Point of Care 177 mg/dl (70-99)
--- NOTE | 2023-08-05 20:00 | PTCARENOTE ---
Rec'd pt resting in bed, ambulates to bathroom with minimal assist. Afebrile NSR on monitor. BP 120s/80s. Pulses palpable, no edema. IV lines flushed/patent. IVF as ordered. Room air 100%. Tolerating 1800 diet, loose BM. No nausea/vomiting.
Urinating in bathroom/urinal. Will monitor.
[2023-08-05] MEDS: LANTUS 0.149999999999999994 UNITS SC (22:32)
[2023-08-06] VITALS (12 sets, daily range): BP systolic 122–165; BP diastolic 69–92; BMI 35.9
--- NOTE | 2023-08-06 00:30 | PTCARENOTE ---
Pt c/o full bladder feeling despite 250cc urination. Bladder scan showed 551cc in bladder remained. Straight cathed for clear, yellow urine, 575cc. Will monitor. Scant blood from meatus. Pt reports this is normal for him. DHARMESH De Jesus made aware.
Will monitor.
[2023-08-06 00:42] LABS: Glucose - Point of Care 204 mg/dl (70-99)
[2023-08-06] MEDS: NOVOLOG FLEXPEN 2 UNITS SC (01:39)
[2023-08-06 03:31] LABS: % Basophils 0.3 % (0-2); % Eosinophils 3.3 % (0-6); % Immature Granulocytes 0.7 % (0-0.5); % Monocytes 8.8 % (1.7-9.3); % Neutrophils 60.9 % (42.2-75.2); Absolute Eosinophils 0.4 10^3/uL (0-0.7); Absolute Immature Granulocytes 0.1 10^3/uL (0-0.05); Absolute Lymphocytes 2.7 10^3/uL (1.2-3.4); Absolute Monocytes 0.9 10^3/uL (0.1-0.6); Absolute Neutrophils 6.4 10^3/uL (1.4-6.5); Hematocrit 46.9 % (39.0-52.0); Mean Corp Hgb Conc. 34.1 g/dL (33.0-37.0); Mean Corpuscular Hgb 30.7 pg (27.0-31.0); Mean Corpuscular Volume 89.8 fL (80.0-94.0); Mean Platelet Volume 10.3 fL (7.4-10.4); Nucleated Red Blood Cells % 0 % (-); Platelet Count 222 10^3/uL (130-400); Red Blood Cell Count 5.22 10^6/uL (4.70-6.10); Red Cell Dist. Width 12.4 % (11.5-14.5); White Blood Cell Count 10.5 10^3/uL (4.8-10.8)
[2023-08-06 04:06] LABS: ALT (SGPT) 25 U/L (0-50); AST (SGOT) 34 U/L (17-59); Albumin 3.8 g/dl (3.5-5.0); Alkaline Phosphatase 38 U/L (38-126); Blood Urea Nitrogen 73 mg/dl (9-20); Calcium 8.7 mg/dl (8.4-10.2); Carbon Dioxide 25 mmol/L (22-30); Chloride 103 mmol/L (98-107); Estimated Creatinine Clearance 47 ml/min; Glucose 189 mg/dl (70-99); Sodium 140 mmol/L (135-145); Total Bilirubin 0.7 mg/dl (0.2-1.3); Total Protein 6.8 g/dl (6.3-8.2); eGFR 35.15
--- NOTE | 2023-08-06 04:56 | PTCARENOTE ---
AM care provided. Labs sent and pending.No change in previous assessment. Will monitor.
[2023-08-06] MEDS: D5/0.9% SODIUM CHLORIDE 1000 IV (05:00)
--- NOTE | 2023-08-06 06:35 | PTCARENOTE ---
Bladder scan 621ml PVR. Small amount blood from meatus as previously documented. Order noted to place bill catheter. Pt tolerated procedure and felt immediate relief. 650 Clean yellow urine with minimal blood clot in tubing, which cleared. Punch
color urine toward end of draining. Will monitor.
--- NOTE | 2023-08-06 08:00 | PTCARENOTE ---
recd handoff at bedside, VS noted. awakens easily, notes feeling better and stronger than yesterday. assessment completed, ordered and eating breakfast, glucose addressed per MD order.
[2023-08-06] MEDS: NICODERM TRANSDERMAL 14 MG TRANSDERM (08:01)
[2023-08-06] MEDS: PROTONIX IV 40 MG IV (08:02)
[2023-08-06] MEDS: NSS (PRESERVATIVE FREE) 10 ML IV (08:02)
[2023-08-06] MEDS: ELIQUIS 5 MG PO ×2 (08:02→20:05)
--- NOTE | 2023-08-06 08:02 | W.PN.INTV ---
Today's Communication / Plan
Recommendations
Eliquis therapy for atrial fibrillation
Follow blood pressures, electrolytes
For now, continue Protonix twice daily, can resume once a day thereafter
DC IV fluids
Ambulate
Outpatient sleep clinic evaluation
For transfer out of ICU. We will sign off. Please call with questions
Assessment
-
62-year-old man with history of diabetes, atrial fibrillation, hyperlipidemia, hypertension who is a smoker comes to the hospital complaining of vomiting for the last several days. Mild diarrhea. Recently his Mounjaro has been increased. He
states that whenever he is Mounjaro was given he did not feel well.
Hypovolemic shock: Likely due to nausea and vomiting/GI losses
Contraction alkalosis
Acute kidney injury with BUN greater than 100
Initial lactic acid elevated now has cleared
Mild troponin increase likely type II
Hyperglycemia
Trace ketones in urine
Slightly elevated beta hydroxybutyrate
Conditions present prior admission:
Type 2 diabetes
Atrial fibrillation on anticoagulation
Hyperlipidemia
Hypertension
Smoker
Assessment and plan:
At this time, patient improved objectively and subjectively
Off insulin drip as of 08/04, blood sugars noted
Appreciate input of diabetic FOOD AND BEVERAGE OUTLETS MANAGER
92% at night on room air
Observed ambulating in the room without difficulty
Moving forward
Continue with supportive care, follow blood sugars
DC IV fluids
Hypertension noted, continue outpatient medications
Hold lisinopril
Follow electrolytes, potassium
Nausea/emesis have since resolved
Continue Protonix twice daily for now
Hemodynamically stable, norepinephrine has been weaned off
Hold antihypertensives, hold nephrotoxic drugs
Pearce urinary output
Follow renal function
Patient did not tolerate discontinuation of Pearce due to urinary retention
Follow
EKG with normal sinus rhythm. Left axis deviation. Prolonged QT.
Patient is without chest pain
Mild increased troponins-likely non-PR.
Trending down
Defer any further workup to primary service
Would assess ambulatory saturation
Patient is on Eliquis therapy for atrial fibrillation
Patient states that he was evaluated for sleep apnea and it was negative.
91% saturation noted. Check ambulatory saturation prior to discharge
Would recommend repeat evaluation given multiple comorbidities. Patient would like to follow-up at [place]
Information left in chart
DVT prophylaxis on anticoagulation for atrial fibrillation
Okay for transfer out of ICU. We will sign off. Please call with questions
Subjective Dataa
Subjective Data
Date of Service:
Date of Service: August 06, 2023
Subjective:
Patient is feeling improved. Nausea has resolved. Denies shortness of breath, chest pain, headaches. Appetite is better, spirits are better
Objective Data
Data Reviewed
Vital Signs / I&O / Oxygen:
Vital Signs
Temp Pulse Resp BP Pulse Ox
98.0 F 70 11 142/90 92
08/06/23 07:48 08/06/23 06:30 08/06/23 06:30 08/06/23 06:00 08/06/23 02:45
Intake and Output
08/05/23 08/06/23 08/07/23
06:59 06:59 06:59
Intake Total 3935.4 / 4216.6 4695.2 / 4695.2
Output Total 2600 / 2600 4500 / 4500
Balance 1335.4 / 1616.6 195.2 / 195.2
SaO2 92
Nasal Cannula flow liters per 2
minute
Physical Exam
General: Comfortable
HEENT: Normocephalic and Anicteric
Cardiovascular: S1-S2, Regular Rhythm, Murmur (n) and Rub (n)
Respiratory: Wheeze (n), Crackles (n), Rhonchi (n) and Non-Labored Respirations
GI: Soft, Non Distended and Non Tender
Neurology: Awake, Alert and No Motor Deficits
Skin: Good Color, Cyanosis (n), Jaundice (n) and Rash (n)
Labs/Micro/Reports
Lab Data
08/06/23 03:21
08/06/23 03:21
Microbiology
08/04/23 07:23 Blood/Venous Blood Culture - Preliminary
No Growth in 48 hours- Final report to follow
08/04/23 08:00 Blood/Venous Blood Culture - Preliminary
No Growth in 24 hours- Final report to follow
08/04/23 08:36 Nasal Swab Influenza Types A & B (TROY) - Final
Negative for Influenza A & B, NAAT
Negative results must be combined with clinical observations
and patient history.
Nucleic Acid Amplification test (NAAT)performed on the
[employer] platform.
[2023-08-06 08:11] LABS: Glucose - Point of Care 182 mg/dl (70-99)
[2023-08-06] MEDS: NOVOLOG FLEXPEN-LOW RESISTANCE 1 UNITS SC ×2 (08:18→12:31)
[2023-08-06] MEDS: NOVOLOG FLEXPEN 4 UNITS SC ×3 (08:20→18:29)
[2023-08-06] MEDS: TYLENOL 650 MG PO ×2 (08:57→15:41)
--- NOTE | 2023-08-06 09:23 | PN.DE.MGMTRT ---
Insulin Management
- -
08/06/2023 Diabetes Management Consult Follow up
Patient admitted with lightheadedness, Syncope, nausea vomiting and diarrhea, found to be in DKA and started on DKA protocol.
PMH includes: HTN, HLD, A-Fib and T2DM. A1C 7.9%, Cr 2.1 today, eGFR 35.15, was taking Metformin 1000 mg BID, Jardiance 25mg daily (patient states his primary doctor had just increased) and Basaglar 18 units @ HS and Mounjaro 5 mg.
Pt is currently in the ICU, Pt awake, alert and oriented, resting in bed, comfortably, anxious to discuss diabetes management.
Transitioned from DKA insulin infusion to lantus and novolog. Received 15 units lantus @ hs, fasting this AM 189. Will increase hs lantus to 18 units. Received 4 units novolog with dinner. Low corrective insulin ordered. Will follow for further
need to increase AC novolog.
Discussed with patient will not resume Mounjaro or Jardiance or metformin.
Diabetes History
- -
Type of Diabetes: 2 requiring insulin
Pre-Admission Diabetes Regimen
08/05/23 08/06/23
13:59 03:21
Creatinine 3.2 H 2.1 H
Lab Results
Hemoglobin A1c 7.9 % (4.0-5.6) H 08/05/23 03:29
Insulin Pump Settings
IP Diabetes Regimen
08/05/23 08/05/23 08/05/23
09:31 11:27 13:37
Glucose
POC Glucose 114 H 112 H 104 H
08/05/23 08/05/23 08/05/23
13:59 14:34 16:09
Glucose 103 H
POC Glucose 93 138 H
08/05/23 08/06/23 08/06/23
18:20 00:40 03:21
Glucose 189 H
POC Glucose 177 H 204 H
08/06/23
08:00
Glucose
POC Glucose 182 H
Meal type: Dinner
Amount consumed: 100%
Patient Education
--- NOTE | 2023-08-06 10:34 | PTCARENOTE ---
seen by Moncho Matamoros, Angelica, diabetic management/FAMILY SERVICES COORDINATOR. tsf tele orders appreciated. OOB in chair, tele pack, bill with occas pink tinge urine. verbalizing re: need for outpatient appointments and management, support offered. no other change.
--- NOTE | 2023-08-06 11:45 | W.PN.HOSP.TC ---
Today's Communication/Plan
-
Monitor vitals
See plan
Transfer to telemetry
Echocardiogram
Family to bring tadalafil
Currently with [facility]
Assessment / Plan
Assessment / Plan
General: Well Developed, Well Nourished, No Apparent Distress and Comfortable
HEENT: NormoCephalic, Anicteric and Moist mucous membranes
Respiratory: Clear
Cardiac: S1/S2 and Regular Rhythm
GI: Soft, Non Tender and Non Distended
Genito-urinary: Pearce
Musculoskeletal: No Clubbing, No Cyanosis and No Edema
Skin: Warm and Dry
Neuro: Awake, Alert and Oriented
Psych: Calm
Syncope likely 2/2 Hypovolemic shock likley 2/2 hypovolemia due to intractable nausea vomiting secondary to Mounjaro-likely due to profound volume depletion, GI fluid loss, poor oral intake. Now off Levophed. No more IV fluids as now on regular
diet.
PRINCESS -suspect due to profound volume depletion. Treatment as above. Nephrology following. [facility] was initially DC'd however was put back in 08/05 due to acute urinary retention. Patient does have history of BPH and follows up with urology
outpatient. He is on tadalafil which was started here however we do not have that in formulary. Patient's spouse to bring in his medication so it can be given here. Hold metformin.
Lactic acidosis noted. Resolved
Creatinine now 2.1, continue to monitor
Suspect mild DKA on admission
Started on insulin drip, now stopped and has been transition to subcu insulin
Monitor
a1c 7.9
Syncope -likely related to shock, profound volume depletion.
Elevated troponin likely nonischemic myocardial injury
chest pain 08/04; however trop better than before. chest pain resolved
will check echo and depending that will see if needs inpatient or outpatient cards eval
Hyponatremia -resolved
Essential hypertension -currently hypotensive at times so hold antihypertensive
Paroxysmal atrial fibrillation -resumed Eliquis.-Prior ablation in the past.
hyperlipidemia
hx of BPH
cw tadalafil once family brings
Follow-up with urology outpatient
Obesity due to excess calories
Full code
I spent a total of 53 minutes with the patient or on the floor. More than 50% of this time involved counseling and coordination of care.
Anticipated Discharge: 24 - 48 hours
Subjective/Interval History
-
Date of Service: August 06, 2023
denies pain
Objective Data
-
Labs:
Laboratory Results
08/06/23
03:21
WBC 10.5
Hgb 16.0
Hct 46.9
Plt Count 222
Sodium 140
Potassium 4.0
Chloride 103
Carbon Dioxide 25
BUN 73 H
Creatinine 2.1 H
Glucose 189 H
Calcium 8.7
Total Bilirubin 0.7
AST 34
ALT 25
Alkaline Phosphatase 38
Vital Signs:
Vital Signs
Temp Pulse Resp BP Pulse Ox
98.2 F 85 22 133/77 96
08/06/23 11:41 08/06/23 10:30 08/06/23 10:15 08/06/23 10:04 08/06/23 10:31
I&O
08/05/23 08/06/23 08/07/23
06:59 06:59 06:59
Intake Total 3935.4 / 4216.6 4695.2 / 4845.2 660 / 660
Output Total 2600 / 2600 4500 / 4500 1050 / 1050
Balance 1335.4 / 1616.6 195.2 / 345.2 -390 / -390
[2023-08-06 12:13] LABS: Glucose - Point of Care 157 mg/dl (70-99)
--- NOTE | 2023-08-06 12:32 | CM ---
CM following re: discharge planning.
Discussed in Rounds, reviewed pt's chart, met with pt. Per Rounds meeting, pt is doing much better, OOB, currently with [facility] and will be downgraded from ICU level of care.
Pt lives with spouse in a 2SH, 2 steps to enter, has 3 supportive children and independent in all areas [employer], drives, works.
D/C plan: home with anticipated no needs. Spouse to transport at discharge.
CM will follow with discharge plan updates as hospitalization progresses
--- NOTE | 2023-08-06 14:40 | CARDSERVLU ---
Echocardiogram with [facility] completed after protocol screening completed. Allergies verified.
Patent IV site: __RAC___
IV site flushed with 0.9% NaCl pre and post administration.
Diluted bolus method utilized to enhance visualization of ventricular otoole.
Total volume given: __3__ mL
Patient tolerated all procedures well without complications.
--- NOTE | 2023-08-06 14:43 | W.PN.NEPH.PH ---
Today's Communication / Plan
-
sign off
Assessment/Plan
-
IMP:
Hypovolemic shock
PRINCESS
Syncope
Hyponatremia -hypovolemic
DM2 with hyperglycemia
Trop elevation -likely non [place]
Essential hypertension
Paroxysmal atrial fibrillation
hyperlipidemia
Obesity
Plan:
A/w n/v/d and syncope
severe PRINCESS likely prerenal progressed to ischemic ATN
UA with microhematuria(h/o neg cystoscopy), had bill now d/c
renal ultrasound when able
met alkalosis, hypochloremia likely from vomiting
Na 140, Cr 2.1
replete K PRN
mild a gap noted, B hydroxy butyrate+ve, insulin per primary, holding Jardiance and Mounjaro
avoid nephrotoxins and AECI, metformin
L acid is improving
d/w patient and family
nephrology will sign off. plan on weekly labs until Cr normalizes. to follow up with primary. if needed, can refer to nephrology as outpatient
-
-
Date of Service: August 06, 2023
CC / HPI / ROS
-
Chief Complaint:
PRINCESS
History of Present Illness:
Cr peak at 7, down to 2.1 now
hypokalemia
hyponatremia resolved
Review of Systems:
feeling much improved today
Labs
-
Labs:
WBC 10.5 10^3/uL (4.8-10.8) 08/06/23 03:21
RBC 5.22 10^6/uL (4.70-6.10) 08/06/23 03:21
Hgb 16.0 g/dL (13.0-18.0) 08/06/23 03:21
Hct 46.9 % (39.0-52.0) 08/06/23 03:21
Plt Count 222 10^3/uL (130-400) 08/06/23 03:21
Sodium 140 mmol/L (135-145) 08/06/23 03:21
Potassium 4.0 mmol/L (3.5-5.1) 08/06/23 03:21
Chloride 103 mmol/L (98-107) 08/06/23 03:21
Carbon Dioxide 25 mmol/L (22-30) 08/06/23 03:21
BUN 73 mg/dl (9-20) H 08/06/23 03:21
Creatinine 2.1 mg/dL (0.7-1.3) H 08/06/23 03:21
eGFR 35.15 08/06/23 03:21
Glucose 189 mg/dl (70-99) H 08/06/23 03:21
Calcium 8.7 mg/dl (8.4-10.2) 08/06/23 03:21
Phosphorus 5.1 mg/dl (2.5-4.5) H 08/04/23 21:31
Albumin 3.8 g/dl (3.5-5.0) 08/06/23 03:21
Physical Exam
-
Vital Signs:
Vital Signs
Temp Pulse Resp BP Pulse Ox
98.2 F 69 22 133/77 96
08/06/23 11:41 08/06/23 13:15 08/06/23 10:15 08/06/23 10:04 08/06/23 10:31
Cardiovascular:: Regular rate and rhythm
Respiratory:: Bilateral: CTA
Lung Excursion:: Normal
Abdomen:: Nontender and Soft
Bowel Sounds:: Normal
Extremity Edema:: None: Bilateral:
Bill Catheter: No
[2023-08-06] MEDS: NON-FORMULARY ITEM 5 MG PO (16:19)
--- NOTE | 2023-08-06 16:46 | TRANSFER ---
tsf to [phone] via w[facility] with all belongings. in good spirits. family present. no change.
[2023-08-06 16:49] LABS: Glucose - Point of Care 126 mg/dl (70-99)
[2023-08-06] MEDS: NOVOLOG FLEXPEN-LOW RESISTANCE SC (16:51)
[2023-08-06] MEDS: PROTONIX 40 MG PO (20:05)
[2023-08-06] MEDS: DILAUDID 0.25 MG IV (20:05)
--- NOTE | 2023-08-06 20:30 | PTCARENOTE ---
Pt reports 10/10 pain to coccyx area. House [employer] Behzad Cifuentes notified, order for 1x IV Dilaudid 0.25mg provided to pt. Will continue to monitor.
[2023-08-06 21:39] LABS: Glucose - Point of Care 107 mg/dl (70-99)
[2023-08-06] MEDS: LANTUS 0.179999999999999993 UNITS SC (22:06)
[2023-08-07 03:38] VITALS: BP 141/76
[2023-08-07 07:10] VITALS: BP 146/79
--- NOTE | 2023-08-07 07:27 | PN.DE.MGMTRT ---
Insulin Management
- -
08/07/2023 Diabetes Management Consult Follow up
Patient admitted with lightheadedness, Syncope, nausea vomiting and diarrhea, found to be in DKA and started on DKA protocol.
PMH includes: HTN, HLD, A-Fib and T2DM. A1C 7.9%, Cr 2.1 today, eGFR 35.15, was taking Metformin 1000 mg BID, Jardiance 25mg daily (patient states his primary doctor had just increased) and Basaglar 18 units @ HS and Mounjaro 5 mg.
Pt transferred from ICU to [facility]. He is awake alert and oriented able to discuss his diabetes plan.
Received 18 units lantus @ hs, fasting this AM 107 POC and 116 venous. Received 4 units novolog AC with low corrective insulin. Pre meal glucose range yesterday 107 to 157. Will continue novolog 4 units AC with low corrective insulin and lantus 18
units. Patient states he feels comfortable with testing blood sugars and self injection.
Discussed with patient will not resume Mounjaro or Jardiance or metformin.
Patient is for discharge today.
Diabetes History
- -
Type of Diabetes: 2 requiring insulin
Pre-Admission Diabetes Regimen
Lab Results
Hemoglobin A1c 7.9 % (4.0-5.6) H 08/05/23 03:29
Insulin Pump Settings
IP Diabetes Regimen
08/06/23 08/06/23 08/06/23
08:00 12:01 16:47
POC Glucose 182 H 157 H 126 H
08/06/23
21:28
POC Glucose 107 H
Meal type: Dinner
Meal type: Lunch
Meal type: Breakfast
Amount consumed: 100%
Amount consumed: 75%
Amount consumed: 100%
Patient Education
[2023-08-07 07:56] LABS: % Basophils 0.4 % (0-2); % Eosinophils 5.4 % (0-6); % Immature Granulocytes 0.7 % (0-0.5); % Lymphocytes 29.6 % (20.5-51.1); % Neutrophils 55.9 % (42.2-75.2); Absolute Eosinophils 0.5 10^3/uL (0-0.7); Absolute Immature Granulocytes 0.1 10^3/uL (0-0.05); Absolute Lymphocytes 2.8 10^3/uL (1.2-3.4); Absolute Monocytes 0.8 10^3/uL (0.1-0.6); Absolute Neutrophils 5.4 10^3/uL (1.4-6.5); Hematocrit 44.7 % (39.0-52.0); Hemoglobin 15.3 g/dL (13.0-18.0); Mean Corp Hgb Conc. 34.2 g/dL (33.0-37.0); Mean Corpuscular Hgb 30.8 pg (27.0-31.0); Mean Corpuscular Volume 89.9 fL (80.0-94.0); Mean Platelet Volume 10.8 fL (7.4-10.4); Nucleated Red Blood Cells % 0 % (-); Platelet Count 227 10^3/uL (130-400); Red Blood Cell Count 4.97 10^6/uL (4.70-6.10); Red Cell Dist. Width 12.5 % (11.5-14.5); White Blood Cell Count 9.6 10^3/uL (4.8-10.8)
[2023-08-07 08:16] LABS: Glucose - Point of Care 107 mg/dl (70-99)
[2023-08-07 08:30] LABS: ALT (SGPT) 20 U/L (0-50); AST (SGOT) 30 U/L (17-59); Albumin 3.6 g/dl (3.5-5.0); Alkaline Phosphatase 40 U/L (38-126); Blood Urea Nitrogen 36 mg/dl (9-20); Calcium 8.7 mg/dl (8.4-10.2); Carbon Dioxide 22 mmol/L (22-30); Chloride 105 mmol/L (98-107); Estimated Creatinine Clearance 65 ml/min; Glucose 116 mg/dl (70-99); Potassium 3.7 mmol/L (3.5-5.1); Sodium 138 mmol/L (135-145); Total Bilirubin 0.6 mg/dl (0.2-1.3); Total Protein 6.5 g/dl (6.3-8.2); eGFR 52.64
[2023-08-07] MEDS: ELIQUIS 5 MG PO (08:46)
[2023-08-07] MEDS: NOVOLOG FLEXPEN 4 UNITS SC (08:46)
[2023-08-07] MEDS: NOVOLOG FLEXPEN-LOW RESISTANCE SC (08:46)
[2023-08-07] MEDS: TRICOR 145 MG PO (08:47)
[2023-08-07] MEDS: NON-FORMULARY ITEM 5 MG PO (08:47)
[2023-08-07] MEDS: NICODERM TRANSDERMAL 14 MG TRANSDERM (08:47)
[2023-08-07] MEDS: PROTONIX 40 MG PO (08:47)
--- NOTE | 2023-08-07 09:26 | PTCARENOTE ---
Pt left AMA. aware and filled out form with pt explaining the risks to him. Pearce, telemetry and IV removed. Pt ambulated from unit by himself.
--- NOTE | 2023-08-07 10:42 | W.PN.HOSP.TC ---
Addendum entered and electronically signed by Jose Gross MD 08/07/23 10:56:
Time of discharge 38 minutes
Original Note:
Today's Communication/Plan
-
08/06 patient decided to leave AGAINST MEDICAL ADVICE. Risks were discussed with the patient including his persistent urinary retention however he still refused to stay in the hospital and wanted Pearce catheter to be removed before leaving. RN was
present in the room during this conversation. Patient signed AMA form.
Assessment / Plan
Assessment / Plan
General: Well Developed, Well Nourished, No Apparent Distress and Comfortable
HEENT: NormoCephalic, Anicteric and Moist mucous membranes
Respiratory: Clear
Cardiac: S1/S2 and Regular Rhythm
GI: Soft, Non Tender and Non Distended
Genito-urinary: Pearce
Musculoskeletal: No Clubbing, No Cyanosis and No Edema
Skin: Warm and Dry
Neuro: Awake, Alert and Oriented
Psych: Calm
Syncope likely 2/2 Hypovolemic shock likley 2/2 hypovolemia due to intractable nausea vomiting secondary to Mounjaro-likely due to profound volume depletion, GI fluid loss, poor oral intake. Now off Levophed. No more IV fluids as now on regular
diet.
PRINCESS -suspect due to profound volume depletion. Treatment as above. Nephrology following. Pearce was initially DC'd however was put back in 08/05 due to acute urinary retention. 08/06 patient decided to leave AGAINST MEDICAL ADVICE. Risks were
discussed with the patient including his persistent urinary retention however he still refused to stay in the hospital and wanted Pearce catheter to be removed before leaving. RN was present in the room during this conversation. Before patient left
the hospital I advised patient to follow-up with his primary care provider for repeat BMP and also to stop Mounjaro and metformin. He is also on lisinopril which she was instructed to hold until his creatinine improves. Patient does have history
of BPH and follows up with urology outpatient. He is on tadalafil which was started here however we do not have that in formulary. Patient's spouse to bring in his medication so it can be given here. Hold metformin.
Lactic acidosis noted. Resolved
Creatinine now 1.5, continue to monitor
Suspect mild DKA on admission
Started on insulin drip, now stopped and has been transition to subcu insulin
Monitor
a1c 7.9
Syncope -likely related to shock, profound volume depletion.
Elevated troponin likely nonischemic myocardial injury
chest pain 08/04; however trop better than before. chest pain resolved
will check echo and depending that will see if needs inpatient or outpatient cards eval
Hyponatremia -resolved
Essential hypertension -currently hypotensive at times so hold antihypertensive
Paroxysmal atrial fibrillation -resumed Eliquis.-Prior ablation in the past.
hyperlipidemia
hx of BPH
cw tadalafil once family brings
Follow-up with urology outpatient
Obesity due to excess calories
Full code
Anticipated Discharge: Today
Subjective/Interval History
-
Date of Service: August 07, 2023
no abdominal pain
Objective Data
-
Labs:
Laboratory Results
08/07/23
07:09
WBC 9.6
Hgb 15.3
Hct 44.7
Plt Count 227
Sodium 138
Potassium 3.7
Chloride 105
Carbon Dioxide 22
BUN 36 H
Creatinine 1.5 H
Glucose 116 H
Calcium 8.7
Total Bilirubin 0.6
AST 30
ALT 20
Alkaline Phosphatase 40
Vital Signs:
Vital Signs
Temp Pulse Resp BP Pulse Ox
98.0 F 60 16 146/79 97
08/07/23 07:10 08/07/23 07:10 08/07/23 07:10 08/07/23 07:10 08/07/23 07:10
I&O
08/06/23 08/07/23 08/08/23
06:59 06:59 06:59
Intake Total 4695.2 / 4845.2 2339 / 2340
Output Total 4500 / 4500 4450 / 4450
Balance 195.2 / 345.2 -2109 /
--- NOTE | 2023-08-07 10:49 | W.DCSUMMARY ---
Discharge Summary
Discharge Data
Date of Admission: 08/04/23
Date of Discharge: 08/07/23
-
Pending Results: Yes
Hospital Course
62-year-old male with past medical history of diabetes mellitus, essential hypertension, paroxysmal atrial fibrillation, BPH, hyperlipidemia, obesity came to the hospital with syncope secondary to hypovolemic shock. Patient also had severe acute
kidney injury on admission which was secondary to hypovolemic shock due to intractable gastrointestinal losses due to Mounjaro. Patient was seen by nephrology throughout hospitalization. Patient was given aggressive fluid resuscitation and also
required pressors initially to improve his blood pressure. His kidney function continues to get improved. While his kidney functions were elevated metformin, Jardiance was also held. Patient instructed to discontinue Mounjaro. Patient also had
persistent acute urinary retention on this hospitalization and required Pearce catheter. On 08/07/2023 patient decided to leave AGAINST MEDICAL ADVICE. Risks were discussed with the patient including persistent urinary retention however patient
chose to leave AGAINST MEDICAL ADVICE and wanted his Pearce catheter to be removed prior to discharge. Patient was instructed to continue holding metformin and his BABATUNDE inhibitor and to discontinue Mounjaro. Patient was instructed to follow-up
closely with primary care provider for repeat BMP. Patient signed AMA form and later left the hospital on 08/07/2023.
Discharge Plan
-
Patient Disposition: Against Medical Advice
Discharge Diagnosis/Procedures: Syncope secondary to hypovolemic shock
Acute kidney injury secondary to hypovolemic shock from intractable gastrointestinal losses due to Mounjaro
Mild diabetic ketoacidosis
Elevated troponin suspect likely from known ischemic myocardial injury
Acute urinary retention
Referrals:
Adelso Dominguez MD [Active] - (2-3 mo for sleep eval (HST and PSG if needed))
Jonathan Blanco PA-C [Family Provider] - in less than 1 week
Additional Discharge Medication Instructions: Hold lisinopril, metformin, Jardiance
Start Mounjaro
Prescriptions:
No Action
ascorbic acid (vitamin C) [Vitamin C] 1,000 MG tablet
1,000 mg PO DAILY
lisinopril 20 MG tablet
20 mg PO DAILY
metoprolol tartrate 50 MG tablet
150 mg PO DAILY
docosahexaenoic acid-epa 1 CAP capsule
1 cap PO BID
acetaminophen [Tylenol] 325 MG capsule
650 mg PO PRN PRN (Reason: pain)
Eliquis 5 MG tablet
5 mg PO BID
(DME) pen needle, diabetic 1 EACH needle
1 ea MC DAILY Qty: 100 0RF
Rx Instructions:
E11.65
rosuvastatin 10 mg tablet
10 mg PO DAILY
tadalafil 5 mg tablet
5 mg PO DAILY
fenofibrate nanocrystallized 145 mg tablet
145 mg PO DAILY
Mounjaro 5 mg/0.5 mL pen injector
5 mg SC WEEKLY
metformin 1,000 MG tablet
1,000 mg PO BID
Rx Instructions:
HOLD post procedure- OK to resume on Sat 3/7 in AM
insulin glargine [Basaglar KwikPen U-100 Insulin] 100 UNIT/ML insulin pen
18 unit SQ HS
Rx Instructions:
E11.65
Jardiance 10 MG tablet
10 mg PO DAILY
Rx Instructions:
E11.65
Discharge Orders:
Discharge Patient (As Directed); Ordered 08/07/23
Ordered By: Jose Gross
Discharge Date and Time
Discharge Date/Time: 08/07/23 09:29
Print Language: HEBREW
--- NOTE | 2023-08-07 11:05 | CM ---
Per nursing, patient left AMA.
== END 2023-08-07 09:29 | disposition left against medical advice (07) | DRG 871 ==
LOC: 4 WEST ACU 09:50
PROVIDERS: Internal Medicine Critical Care Medicine; ADMITTING PHYSICIAN Hospitalist; ATTENDING PHYSICIAN Internal Medicine; CONSULT PHYSICIAN Internal Medicine; CONSULT PHYSICIAN Internal Medicine Critical Care Medicine; EMERGENCY PHYSICIAN Emergency Medicine; FAMILY PHYSICIAN Physician Assistant Medical
DX: R57.1 Hypovolemic shock (principal); E11.10 Type 2 diabetes mellitus with ketoacidosis without coma; N17.0 Acute kidney failure with tubular necrosis; E87.1 Hypo-osmolality and hyponatremia; E87.3 Alkalosis; I5A Non-ischemic myocardial injury (non-traumatic); F17.200 Nicotine dependence, unspecified, uncomplicated; Z11.52 Encounter for screening for COVID-19; Z79.01 Long term (current) use of anticoagulants; I48.0 Paroxysmal atrial fibrillation; E86.1 Hypovolemia; E66.09 Other obesity due to excess calories; Z68.35 Body mass index [BMI] 35.0-35.9, adult; I10 Essential (primary) hypertension; E78.00 Pure hypercholesterolemia, unspecified; E87.8 Other disorders of electrolyte and fluid balance, not elsewhere classified; N40.1 Benign prostatic hyperplasia with lower urinary tract symptoms; T38.3X5A Adverse effect of insulin and oral hypoglycemic [antidiabetic] drugs, initial encounter; E87.6 Hypokalemia
CPT/HCPCS: 51702; 71045; 80048; 80053; 81003; 81015; 82010; 82962; 83036; 83605; 83690; 83735; 84100; 84484; 85025; 85610; 85730; 87040; 87502; 87811; 93005; 93306; 96361; 96365; 99291; 99406; Q9950